=== PATIENT | female | born 1980 | race Caucasian/White ===

== ENCOUNTER 2019-10-27 14:11 | Outpatient (CLI) | payer OTHER ==
[~2019-10-27] VITALS: Ht 154.9 cm; Wt 79.4 kg
[2019-10-27] MEDS ORDERED: CT SWABBABLE VALVE TRANS SET 1 EA INFUS.SET MC ONE (16:17)
[2019-10-27] MEDS ORDERED: IV NS 0.9% 250 ML IV ONE (16:17)
[2019-10-27] MEDS ORDERED: IOHEXOL-350 100 ML VIAL IV ONE (16:17)
[2019-10-27] MEDS ORDERED: NITROGLYCERIN 4.9 GM SPRAY SL PRN (16:30)
[2019-10-27] MEDS ORDERED: METOPROLOL TARTRATE INJ 5 MG/5 ML AMPUL ONE (17:04)
[2019-10-27] MEDS ORDERED: NITROGLYCERIN 0.4 MG/TAB BOTTLE ONE (17:05)
[2019-10-27] MEDS: METOPROLOL TARTRATE INJ 5 MG/5 ML AMPUL IVP PRN ×2 (17:08→17:13)
[2019-10-27 17:21] VITALS: BP 104/67
== END 2019-10-27 23:59 | disposition home or self-care (01) ==
LOC: CT 14:11
PROVIDERS: ATTEND Internal Medicine Interventional Cardiology
DX: R07.9 Chest pain, unspecified (principal)
CPT/HCPCS: 75574; J3490; J7050; Q9967